=== PATIENT | male | born 1960 | race African-American/Black ===

== ENCOUNTER 2018-09-05 11:18 | Inpatient (IN) | payer MEDICARE ==
[~2018-09-05] VITALS: Ht 175.3 cm; Wt 61.2 kg
[2018-09-05] MEDS ORDERED: SODIUM CHLORIDE 0.9% 1,000 ML IV ONE (11:39)
[2018-09-05] MEDS ORDERED: LEVETIRACETAM 1000MG/100ML 100 ML IV ONE (11:45)
[2018-09-05 12:01] LABS: BASOPHILS % 0.4 % (0.0-2.0); EOSINOPHILS % 0.1 % (0.0-5.0); HEMATOCRIT. 48.6 % (42.0-52.0); HEMOGLOBIN. 16.2 g/dL (14.0-18.0); LYMPHOCYTES % 12.5 % (20.0-50.0); MEAN CORPUSCULAR HEMOGLOBIN 33.5 pg (28.0-32.0); MEAN CORPUSCULAR VOLUME 100.3 fL (80.0-94.0); MEAN PLATELET VOLUME 8.5 fl (7.4-10.4); MONOCYTES % 4.9 % (2.0-8.0); NEUTROPHILS % 82.1 % (40.0-76.0); PLATELET 165 x1000/uL (130-400); RED BLOOD CELL COUNT 4.84 mill/uL (4.7-6.1)
[2018-09-05 12:09] LABS: CHLORIDE 96 mEq/L (98-107)
[2018-09-05 12:12] LABS: ETHANOL BLOOD < 10 mg/dL
[2018-09-05 12:17] LABS: CREATINE KINASE 249 IU/L (39-308)
[2018-09-05 12:20] LABS: CARBAMAZEPINE < 0.5 ug/mL (4-12); PHENOBARBITAL < 2.1 ug/mL (15.0-40.0)
[2018-09-05 12:24] LABS: PARTIAL THROMBOPLASTIN TIME 25.5 sec (23.4-31.0)
[2018-09-05] MEDS ORDERED: LORAZEPAM 2MG/ML CPJ IM ONE (12:30)
[2018-09-05] MEDS ORDERED: LORAZEPAM 2MG/ML CPJ IV ONE (12:30)
[2018-09-05] MEDS ORDERED: DEXT 5%/0.45% NACL 1000ML 1,000 ML IV SCH (12:33)
[2018-09-05] MEDS ORDERED: HYDROCODONE/ACETAMINOPHEN 5/325MG TABLET PO PRN (12:45)
[2018-09-05] MEDS ORDERED: ENOXAPARIN 40MG/0.4ML SYR SUBCUT SCH (12:45)
[2018-09-05] MEDS ORDERED: ONDANSETRON HCL 4MG/2ML INJ IV PRN (12:45)
[2018-09-05] MEDS ORDERED: GUAIFENESIN 200MG/10ML SUGAR FREE UDC PO PRN (12:45)
[2018-09-05] MEDS ORDERED: MAGNESIUM/ALUMINUM HYDROXIDE/SIMETHICONE 30ML UDC PO PRN (12:45)
[2018-09-05] MEDS ORDERED: DOCUSATE SODIUM 100MG CAPSULE PO PRN (12:45)
[2018-09-05] MEDS ORDERED: DIPHENHYDRAMINE 50MG/ML VIAL IV PRN (12:45)
[2018-09-05] MEDS ORDERED: CLONIDINE 0.1MG TABLET PO PRN (12:45)
[2018-09-05] MEDS ORDERED: NA PHOS,M-B/NA PHOS,DI-BA ENEMA 118ML PR PRN ×2 (12:45→16:45)
[2018-09-05] MEDS ORDERED: LORAZEPAM 2MG/ML CPJ IV PRN ×2 (12:45→15:30)
[2018-09-05] MEDS ORDERED: IPRATROPIUM/ALBUTEROL 0.5-3(2.5)MG/3ML NEB INH PRN (12:45)
[2018-09-05] MEDS ORDERED: MULTIVITAMINS,THER W-MINERALS TABLET PO SCH (16:45)
[2018-09-05] MEDS ORDERED: THIAMINE HCL 100MG TABLET PO SCH (16:45)
[2018-09-05] MEDS ORDERED: FOLIC ACID 1MG TABLET PO SCH (16:45)
[2018-09-05] MEDS: ENOXAPARIN 40MG/0.4ML SYR SUBCUT SCH (17:00)
[2018-09-05 17:45] VITALS: BP 153/91
[2018-09-05 18:22] VITALS: BP 153/91
[2018-09-05 20:00] VITALS: BP 146/94
[2018-09-05 20:52] LABS: CHLORIDE 100 mEq/L (98-107)
[2018-09-05] MEDS: DEXT 5%/0.45% NACL 1000ML 1,000 ML IV SCH (21:06)
[2018-09-06] VITALS: BP 155/100
[2018-09-06] MEDS: CLONIDINE 0.1MG TABLET PO PRN (00:03)
[2018-09-06 04:00] VITALS: BP 142/96
[2018-09-06 08:00] VITALS: BP 148/96
[2018-09-06] MEDS ORDERED: ASPIRIN 81MG EC TABLET PO SCH (09:00)
[2018-09-06] MEDS: ASPIRIN 81MG EC TABLET PO SCH (09:38)
[2018-09-06 12:00] VITALS: BP 164/75
[2018-09-06 12:30] LABS: CLARITY URINE CLOUDY (CLEAR); COLOR URINE DARK YELLOW (YELLOW); KETONES URINE 1+ (NEGATIVE); LEUKOCYTE ESTERASE URINE TRACE (NEGATIVE); NITRITE URINE NEGATIVE (NEGATIVE); OCCULT BLOOD URINE NEGATIVE (NEGATIVE); PH URINE 6.5 (4.5-8.0); PROTEIN URINE NEGATIVE (NEGATIVE); SPECIFIC GRAVITY URINE 1.018 (1.005-1.030)
[2018-09-06 12:43] LABS: *AMPHETAMINES SCREEN URINE NEGATIVE (NEGATIVE)
[2018-09-06 12:44] LABS: *BARBITURATES SCREEN URINE NEGATIVE (NEGATIVE); *BENZODIAZEPINES SCREEN URINE NEGATIVE (NEGATIVE); *COCAINE SCREEN URINE NEGATIVE (NEGATIVE); METHADONE URINE SCREEN NEGATIVE (NEGATIVE); OPIATES URINE SCREEN NEGATIVE (NEGATIVE); PHENCYCLIDINE URINE SCREEN NEGATIVE (NEGATIVE)
[2018-09-06 12:45] LABS: CANNABINOID URINE SCREEN PRESUMTIVE POSITIVE (NEGATIVE)
[2018-09-06] MEDS: AMLODIPINE 5MG TABLET PO SCH ×2 (12:45→21:05)
[2018-09-06] MEDS: CLONIDINE 0.1MG TABLET PO SCH ×2 (15:04→21:06)
[2018-09-06 16:00] VITALS: BP 150/97
[2018-09-06 16:03] LABS: HEMATOCRIT 44.4 % (42.0-52.0); HEMOGLOBIN 15.1 g/dL (14.0-18.0); MEAN CORPUSCULAR HEMOGLOBIN 33.8 pg (28.0-32.0); MEAN CORPUSCULAR VOLUME 99.4 fL (80.0-94.0); PLATELET 158 x1000/uL (130-400); RED BLOOD CELL COUNT 4.47 mill/uL (4.7-6.1); RED CELL DISTRIBUTION WIDTH 13.7 % (11.6-14.6)
[2018-09-06 16:06] LABS: CHLORIDE 97 mEq/L (98-107)
[2018-09-06] MEDS: ENOXAPARIN 40MG/0.4ML SYR SUBCUT SCH (19:03)
[2018-09-06 20:00] VITALS: BP 159/102
[2018-09-06] MEDS: DEXT 5%/0.45% NACL 1000ML 1,000 ML IV SCH (22:20)
[2018-09-07] VITALS: BP 148/83
[2018-09-07] MEDS: LORAZEPAM 2MG/ML CPJ IV PRN ×3 (01:54→12:52)
[2018-09-07 04:00] VITALS: BP 143/80
[2018-09-07] MEDS: CLONIDINE 0.1MG TABLET PO SCH ×3 (05:40→22:00)
[2018-09-07 07:12] LABS: BASOPHILS % 0.3 % (0.0-2.0); EOSINOPHILS % 1.6 % (0.0-5.0); HEMATOCRIT. 43.6 % (42.0-52.0); HEMOGLOBIN. 14.7 g/dL (14.0-18.0); LYMPHOCYTES % 32.6 % (20.0-50.0); MEAN CORPUSCULAR HEMOGLOBIN 33.6 pg (28.0-32.0); MEAN CORPUSCULAR VOLUME 99.6 fL (80.0-94.0); MEAN PLATELET VOLUME 9.4 fl (7.4-10.4); MONOCYTES % 12.9 % (2.0-8.0); NEUTROPHILS % 52.6 % (40.0-76.0); PLATELET 146 x1000/uL (130-400); RED BLOOD CELL COUNT 4.38 mill/uL (4.7-6.1); RED CELL DISTRIBUTION WIDTH 13.4 % (11.6-14.6)
[2018-09-07 08:00] VITALS: BP 162/100
[2018-09-07] MEDS: ASPIRIN 81MG EC TABLET PO SCH (08:40)
[2018-09-07] MEDS: AMLODIPINE 5MG TABLET PO SCH ×2 (08:41→21:00)
[2018-09-07] MEDS: CLONIDINE 0.1MG TABLET PO PRN (08:41)
[2018-09-07 08:42] LABS: CHLORIDE 97 mEq/L (98-107)
[2018-09-07] MEDS: DEXT 5%/0.45% NACL 1000ML 1,000 ML IV SCH ×2 (08:45→22:05)
[2018-09-07 12:00] VITALS: BP 155/103
[2018-09-07] MEDS ORDERED: LORAZEPAM 2MG/ML CPJ IM PRN (15:30)
[2018-09-07] MEDS: ENOXAPARIN 40MG/0.4ML SYR SUBCUT SCH (17:24)
[2018-09-07] MEDS ORDERED: LORAZEPAM 2MG/ML CPJ IV NR (17:30)
[2018-09-07 20:00] VITALS: BP 140/91
[2018-09-07] MEDS ORDERED: AMLODIPINE 5MG TABLET PO SCH (21:00)
[2018-09-08] VITALS: BP 125/78
[2018-09-08] MEDS: LORAZEPAM 2MG/ML CPJ IM PRN ×2 (02:44→07:50)
[2018-09-08 04:00] VITALS: BP 125/90
[2018-09-08] MEDS: CLONIDINE 0.1MG TABLET PO SCH ×3 (06:00→21:28)
[2018-09-08 08:00] VITALS: BP 115/72
[2018-09-08 08:50] LABS: HEMATOCRIT. 41.5 % (42.0-52.0); HEMOGLOBIN. 14.2 g/dL (14.0-18.0); MEAN CORPUSCULAR VOLUME 99.6 fL (80.0-94.0); MEAN PLATELET VOLUME 9.6 fl (7.4-10.4); PLATELET 131 x1000/uL (130-400); RED BLOOD CELL COUNT 4.17 mill/uL (4.7-6.1); RED CELL DISTRIBUTION WIDTH 13.7 % (11.6-14.6)
[2018-09-08] MEDS: AMLODIPINE 5MG TABLET PO SCH ×2 (09:28→21:28)
[2018-09-08] MEDS: ASPIRIN 81MG EC TABLET PO SCH (09:28)
[2018-09-08 09:37] LABS: CHLORIDE 100 mEq/L (98-107)
[2018-09-08] MEDS: ACETAMINOPHEN 325MG TABLET PO PRN (10:00)
[2018-09-08 11:57] LABS: PLATELET ESTIMATE NORMAL
[2018-09-08 12:00] VITALS: BP 133/92
[2018-09-08 16:00] VITALS: BP 136/92
[2018-09-08] MEDS: ENOXAPARIN 40MG/0.4ML SYR SUBCUT SCH (17:00)
[2018-09-08 20:00] VITALS: BP 131/95
[2018-09-08] MEDS ORDERED: POTASSIUM CHLORIDE 20MEQ TABLET SR PO NR (21:00)
[2018-09-09] VITALS: BP 136/86
[2018-09-09] MEDS: DEXT 5%/0.45% NACL 1000ML 1,000 ML IV SCH (00:45)
[2018-09-09 04:00] VITALS: BP 132/88
[2018-09-09] MEDS: CLONIDINE 0.1MG TABLET PO SCH (05:18)
[2018-09-09 08:00] VITALS: BP 119/83
[2018-09-09] MEDS: AMLODIPINE 5MG TABLET PO SCH (09:09)
[2018-09-09] MEDS: ASPIRIN 81MG EC TABLET PO SCH (09:09)
[2018-09-09 10:40] LABS: HEMATOCRIT 42.4 % (42.0-52.0); HEMOGLOBIN 14.2 g/dL (14.0-18.0); MEAN CORPUSCULAR HEMOGLOBIN 33.8 pg (28.0-32.0); PLATELET 122 x1000/uL (130-400); RED CELL DISTRIBUTION WIDTH 13.7 % (11.6-14.6)
[2018-09-09 10:53] LABS: CHLORIDE 103 mEq/L (98-107)
[2018-09-09] MEDS: ACETAMINOPHEN 325MG TABLET PO PRN (12:07)
[2018-09-09 14:07] VITALS: BP 118/82
== END 2018-09-09 15:25 | disposition home or self-care (01) | DRG 100 ==
LOC: ER 11:18 → EDBEDREQ 12:26 → 5WST 12:27 → EDBEDREQSVC 12:29 → EDBEDREQ 12:29 → ENRESERV 14:30 → ER 16:36
PROVIDERS: ADMIT Internal Medicine; ATTEND Internal Medicine
DX: G40.901 Epilepsy, unspecified, not intractable, with status epilepticus (principal); G93.41 Metabolic encephalopathy; F10.239 Alcohol dependence with withdrawal, unspecified; E87.1 Hypo-osmolality and hyponatremia; I10 Essential (primary) hypertension; E87.6 Hypokalemia; G89.29 Other chronic pain; B19.20 Unspecified viral hepatitis C without hepatic coma; F17.210 Nicotine dependence, cigarettes, uncomplicated; F12.90 Cannabis use, unspecified, uncomplicated; Z79.899 Other long term (current) drug therapy
CPT/HCPCS: 36415; 71045; 80048; 80156; 80165; 80184; 80185; 80305; 80320; 82140; 82550; 84484; 85027; 93005; 93306; 96365; 96375; 97162; 99291; J1200; J1650; J1953; J2060; J7030; G0480